=== PATIENT | male | born 1955 | race Caucasian/White ===

== ENCOUNTER 2024-08-19 09:51 | Day surgery (SDC) | payer MEDICARE ==
[2024-08-19] MEDS ORDERED: Lactated Ringers 1,000 ML IV ONE (10:25)
[2024-08-19] MEDS ORDERED: Lactated Ringers 1,000 ML IV SCH (10:30)
[2024-08-19] MEDS ORDERED: propofoL IV ONE ×2 (13:02→13:13)
[2024-08-19 13:56] VITALS: BP 113/65; TEMP 97.4; O2SAT 100
[2024-08-19 14:16] VITALS: PULSE 51; RESP 16
--- NOTE | 2024-08-20 11:55 | OP ---
SURGERY DATE/TIME: 08/19/2024 [id number] PREOPERATIVE DIAGNOSIS: Due for colorectal cancer screening, average risk. POSTOPERATIVE DIAGNOSIS: Colon polyps. PROCEDURE: Colonoscopy with polypectomy. SURGEON: Phani Huggins MD. ANESTHESIA: IV. CONDITION: Stable. COMPLICATIONS: None. SPECIMEN: As below. INDICATION: The patient is a 69-year-old who presents for colorectal cancer screening, average risk. I had a discussion with the patient. He elected to proceed. FINDINGS: 1) A 4-mm polyp, sigmoid, taken with a cold forceps. 2) A 2-mm hepatic flexure polyp taken with cold forceps. 3) Good preparation. 4) Extensive colonic diverticulosis in the sigmoid colon. DESCRIPTION OF PROCEDURE AND FINDINGS: Patient was brought to the endoscopy suite. Routinely positioned and prepared. IV anesthesia induced by Anesthesia. External examination normal. Digital rectal examination normal. Colonoscope inserted, advanced to the cecum, confirmed by the ileocecal valve, as well as the appendiceal orifice. On insertion, at the sigmoid, there is a 4-mm polyp in the sigmoid. He does have extensive sigmoid diverticulosis but this did appear to be adenomatous. The 4-mm polyp taken completely with cold forceps. The preparation is an [place] good preparation. There was a greater than 6 minute withdrawal time. On withdrawal, at the hepatic flexure, there was a 2-mm maybe hyperplastic polyp taken with cold forceps, otherwise, no lesions. Patient tolerated the procedure well, was taken to recovery in stable condition. RECOMMENDATIONS: Follow up either in office or phone appointment for pathology results. Probably a 5-year recall for screening colonoscopy for polyp.
== END 2024-08-19 14:17 | disposition home or self-care (01) ==
LOC: SDC 09:51
PROVIDERS: ATTEND Surgery
DX: Z12.11 Encounter for screening for malignant neoplasm of colon (principal); D12.5 Benign neoplasm of sigmoid colon
CPT/HCPCS: J2704